=== PATIENT | male | born 2000 ===

== ENCOUNTER 2024-01-16 20:23 | Emergency (ER) | payer OTHER, SELFPAY ==
--- NOTE | ~2024-01-16 | XR_ITS ---
EXAMINATION: RIGHT HAND AND WRIST CLINICAL INFORMATION: Pain and joint reduction COMPARISON: None available. TECHNIQUE: 3 images were obtained of the right hand and wrist at 9:28 PM with 3 additional images obtained at 9:34 PM after reduction FINDINGS: Initial radiographs demonstrate a dislocation at the first MCP joint. No fracture was visualized. Subsequent 3 films show normal alignment with reduction of the dislocation. No fracture is seen. XR/XR hand RT 2V IMPRESSION: Dislocation of the first MCP joint with subsequent reduction. No fracture is seen. Electronically signed by: Duran Baltazar MD 01/16/2024 10:06 PM ERIC HOLMAN
--- NOTE | ~2024-01-16 | XR_ITS ---
EXAMINATION: RIGHT HAND AND WRIST CLINICAL INFORMATION: Pain and joint reduction COMPARISON: None available. TECHNIQUE: 3 images were obtained of the right hand and wrist at 9:28 PM with 3 additional images obtained at 9:34 PM after reduction FINDINGS: Initial radiographs demonstrate a dislocation at the first MCP joint. No fracture was visualized. Subsequent 3 films show normal alignment with reduction of the dislocation. No fracture is seen. XR/XR hand wrist RT IMPRESSION: Dislocation of the first MCP joint with subsequent reduction. No fracture is seen. Electronically signed by: Duran Baltazar MD 01/16/2024 10:06 PM ER[facility] HOLMAN
[2024-01-16 20:57] VITALS: BP 135/72; PULSE 117; RESP 22; TEMP 36.7; O2SAT 98; BMI 19.7
--- NOTE | 2024-01-16 21:41 | ED_ITS ---
HPI - Extremity Problem General Chief complaint: Extremity Injury, Upper Stated complaint: Rt Hand injury Time Seen by Provider: 01/16/24 21:29 Source: patient Mode of arrival: ambulatory Limitations: no limitations History of Present Illness ED Provider: cedric WILLIS Narrative: Patient was on trampoline park landed wrong live with hitting his right thumb to the ground comes here with obvious deformity dislocation of the right thumb no other injury Related Data Allergies Allergy/AdvReac Type Severity Reaction Status Date / Time No Known Allergies Allergy Verified 01/16/24 20:59 Review of Systems 2 Review of Systems: Yes all other systems are reviewed and are negative Physical Exam 2 Vital Signs: Vital Signs: Last Vital Signs Temp 97.5 F 01/16/24 22:04 Pulse 109 H 01/16/24 22:04 Resp 16 01/16/24 22:04 BP 118/85 01/16/24 22:04 Pulse Ox 98 01/16/24 22:04 O2 Del Method Room Air 01/16/24 22:04 BMI result Body Mass Index 19.7 Extrem: Hand/finger images: 1. No obvious deformity of right thumb with MCP dislocation neurovascular intact Procedures Orthopedic Joint Reduction Joint #1: Side: right Joint Reduction Location: finger ( right thumb) Shoulder Technique Used (if applicable): traction/counter-traction Post-reduction neuro exam: intact Post-reduction vascular: intact Post Reduction X-Ray Obtained: Yes Post Reduction X-Ray Results: reduced Splint Applied: Yes Patient Tolerated Procedure: well Discharge Plan Discharge Clinical Impression: Dislocation of finger Patient Disposition: Home, Self-Care Instructions: Finger Dislocation (ED) Additional Instructions: Wear the splint for support Care and cautions as advised Ibuprofen for pain as needed Interventions: ED Discharge Assessment Last Done: 01/16/24 22:04 Print Language: Wolof
[2024-01-16 22:04] VITALS: BP 118/85; PULSE 109; RESP 16; TEMP 36.4; O2SAT 98
== END 2024-01-16 22:18 | disposition home or self-care (01) ==
LOC: HO.ED 22:07
PROVIDERS: Emergency Provider Internal Medicine
DX: S63.114A Dislocation of metacarpophalangeal joint of right thumb, initial encounter (principal); W17.89XA Other fall from one level to another, initial encounter; Y93.44 Activity, trampolining; Y92.39 Other specified sports and athletic area as the place of occurrence of the external cause; Y99.8 Other external cause status
CPT/HCPCS: 26700; 29130; 73110; 73120; 73130; 99283; 99284

== ENCOUNTER 2024-01-26 15:01 | Outpatient (AMB) | payer OTHER, SELFPAY ==
--- NOTE | 2024-01-26 15:03 | A.OFFVIS_ITS ---
Vital Signs 01/26/24 15:04 Height 6 ft Weight 165 lb BMI 22.4 Handedness Right Intake Visit Reasons: FC- Rt Thumb dislocation Intake Note: Lay is a 24 year old right hand dominant male who presents today as a new patient for a fracture care visit of his right thumb dislocation, DOI: 01/16/2024. Patient reports he was at a trampoline park when he landed on his right thumb. Patient's thumb was reduced in [facility] on 01/16/2024. He reports he has constant pain at his MCP and IP joint of the right hand. He says at times his thumb feels as if it is going to pop back out of place and he needs to crack it. 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 He was provided a finger splint and wrap at [facility] ED however he no longer has the wrap due to his daughter tossing it out accidentally. Reports numbness and tingling at the tip of his right thumb. He takes Tylenol and ibuprofen as needed for pain but does not feel a difference after taking these medications. Allergies No Known Allergies Allergy (Verified 01/26/24 15:04) HPI HPI FC- Rt Thumb dislocation: Details: Patient is a 24-year-old male who presents for ED follow-up status post right thumb MCP joint dislocation, date of injury 01/16/2024. Patient states that on that date, he was at a trampoline park playing dodge ball, when he fell onto his thumb and immediately noticed pain and a significant deformity in the MCP joint. Patient was evaluated in the emergency room, where x-rays revealed posterior dislocation of the MCP joint of the right thumb. This was reduced in the emergency department. Today, the patient reports that he does still have some feelings of instability and pain in the joint, but it has improved since previous evaluation. Denies any numbness or tingling in the right thumb. No other acute complaints or concerns at this time [facility] Social History (Updated 01/26/24 @ 15:10 by LEXX Kidd) Alcohol intake: current Alcohol intake frequency: a few times a month Patient Tobacco Use Status: Never used Tobacco Substance Use Type: Marijuana Current occupational status: unemployed Current occupation: right handed Physical Exam Vital Signs: BMI result Body Mass Index 22.4 Extrem Other: Patient is alert, oriented, and in no acute distress. Neuro: Normal sensation of the tips of all digits of the right hand at this time Vascular: Cap refill brisk Pain: Patient does report tenderness to palpation about the MCP joint of the right thumb Patient does report tenderness to palpation of both the radial and ulnar aspects of the joint ROM: Patient is able to flex and extend all digits of the right hand fully and without difficulty No ligamentous laxity noted with varus and valgus testing of the MCP joint of the right thumb Skin: No lacerations or abrasions. General: No ecchymosis, erythema, or evidence of infection. Psych: Appears grossly normal Affect normal Attitude cooperative Results Reviewed Results Reviewed: X-rays obtained in the ED on date of injury and independently reviewed by me, Matthew Bajwa PA-C, demonstrate reduced dislocation of the MCP joint of the right thumb with no evidence of fracture or other acute bony abnormality. Assessment & Plan Assessment & Plan (1) Dislocation of metacarpophalangeal joint of right thumb: Code(s): S63.114A - Dislocation of metacarpophalangeal joint of right thumb, initial encounter Category: Medical Plan 1. Dislocation of MCP joint of right thumb status post reduction Date of injury 01/16/2024 Patient is educated about this injury and the typical recovery course At this time, patient is educated that there is not any suspicion for RCL or UCL tear due to good endpoints on exam Patient expresses understanding of this Patient was provided with a comfort cool thumb spica splint to be worn with daytime activities Patient was also referred to occupational therapy for range of motion and strengthening of the right hand in the setting of this dislocation Patient will follow-up in 3-4 weeks, sooner with any acute concerns Orders: Orders OT Evaluation and Treatment 01/26/24 S63.114A - Dislocation of metacarpophalangeal joint of right thumb, initial encounter Coding Level of Care Code New Pt Level 3 (16370) Diagnoses Dislocation of metacarpophalangeal joint of right thumb S63.114A
[2024-01-26 15:04] VITALS: BMI 22.4
== END 2024-01-26 15:28 | disposition home or self-care (01) ==
DX: S63.114A Dislocation of metacarpophalangeal joint of right thumb, initial encounter (principal)
CPT/HCPCS: 99203

== ENCOUNTER → 2024-01-26 15:01 | Outpatient (BNVA) | payer OTHER, SELFPAY | DX: S63.114A Dislocation of metacarpophalangeal joint of right thumb, initial encounter (principal) | CPT/HCPCS: 99202 ==